=== PATIENT | male | born 1975 | race Caucasian/White ===

== ENCOUNTER 2017-10-03 17:38 | Emergency (ER) | payer OTHER ==
[~2017-10-03] VITALS: Ht 172.7 cm; Wt 93.0 kg
--- NOTE | ~2017-10-03 | EKG ---
[address] [place] [address] ELECTROCARDIOGRAM REPORT Name: HUNG LOPEZ Gerald [facility]Jesus[facility] [id number] Admission: 10/03/17 Attend Phys: Discharge: Date of : 79 Report #: [id number] THIS REPORT FOR: //name// [facility] ED Test Date: 2017-10-03 Test Time: 18:07:42 Pat Name: HUNG LOPEZ Department: Room: Gender: [employer] Consultant: Jose M CARPIO : 1975 Requested By: Luis F Echevarria Order Number: [id number] MD: Moshe Elena Measurements Intervals [place] Rate: 82 P: 68 IA: 144 QRS: 51 QRSD: 99 T: 54 QT: 363 QTc: 424 Interpretive Statements Sinus rhythm Abnormal R-wave progression, early transition No previous ECG available for comparison Electronically Signed On 10-03-2017 18:44:33 CDT by Moshe Elena [email or web address] <ELECTRONICALLY SIGNED> By: Moshe Elena MD 10/03/17 1844 1807 06 MD DULCE Bhatia
[~2017-10-03 17:38] MED LIST: ACCUNEB SO1.25 MG/1 INH; BACTRIM DS TAB1 EACH PO; FLONASE 0.05%50 MCG NASAL; NORCO 5-325 TA1 EACH PO; PREDNISONE 20 M20 M1 PO
[2017-10-03] MEDS ORDERED: ROBITUSSIN100 MG/53 PO (18:52)
[2017-10-03] MEDS ORDERED: DOXYCYCLINE 10100 MG PO (18:52)
[2017-10-03 19:36] VITALS: BP 136/77
== END 2017-10-03 19:36 | disposition home or self-care (01) ==
LOC: ER 17:38
DX: R05 Cough (principal); R06.02 Shortness of breath; R53.83 Other fatigue; M54.9 Dorsalgia, unspecified; K21.9 Gastro-esophageal reflux disease without esophagitis; F17.210 Nicotine dependence, cigarettes, uncomplicated; Z88.5 Allergy status to narcotic agent